=== PATIENT | male | born 1935 | race Caucasian/White ===

== ENCOUNTER 2022-11-27 16:27 | Inpatient (IN) | payer MEDICARE, OTHER ==
[2022-11-27 17:00] LABS: #Basophils 0.1 10x3/uL (0.0-0.2); #Eosinphils 0.9 10x3/uL (0.0-0.5); #Monocytes 0.9 10x3/uL (0.0-1.1); #Neutrophils 5.6 10x3/uL (1.5-8.4); %Eosinophils 8.5 % (0.0-6.0); %Monocytes 8.5 % (0.0-10.0); %Neutrophils 51.4 % (40.0-75.0); Hematocrit 38.4 % (38.8-50.0); Hemoglobin 13.1 g/dL (13.5-17.5); Mean Corpuscular HGB CONC 34.1 g/dL (32.0-36.0); Mean Corpuscular Hemoglobin 31.6 pg (27.0-33.0); Mean Corpuscular Volume 92.5 fl (81.2-95.1); Mean Platelet Volume 11.5 fl (7.4-10.4); Platelet Count 238 10x3/uL (150-450); Red Blood Cell (RBC) Count 4.15 10x6/uL (4.32-5.72)
[2022-11-27 17:13] LABS: ALT (SGPT) 38 U/L (8-55); AST (SGOT) 37 U/L (5-34); Alkaline Phosphatase 84 U/L (40-110); Anion Gap 14 mmol/L (10-20); BUN (Urea Nitrogen) 24 mg/dL (8.4-25.7); Bilirubin, Total 0.4 mg/dL (0.2-1.2); Calc. Creatinine Clearance 0 mL/min (70-130); Calcium 10.1 mg/dL (7.8-10.44); Carbon Dioxide 21 mmol/L (23-31); Chloride 103 mmol/L (98-107); Estimated GFR 48; Globulin 3.5 g/dL (2.4-3.5); Potassium 4.3 mmol/L (3.5-5.1); Protein, Total 7.5 g/dL (5.8-8.1); Sodium 134 mmol/L (136-145)
[2022-11-27 17:19] LABS: Troponin I Less than 0.010 ng/mL (< 0.028)
[2022-11-27 17:22] LABS: Glucose 437 mg/dL (83-110)
[2022-11-27] MEDS ORDERED: Insulin Regular 300 UNITS/3 ML VIAL ONE (18:48)
[2022-11-27] MEDS ORDERED: Glucagon 1 MG/ML KIT IM PRN (19:25)
[2022-11-27] MEDS ORDERED: Acetaminophen 325 MG TAB PO PRN (19:25)
[2022-11-27] MEDS ORDERED: Dextrose 50% Abboject 50 ML SYRINGE SLOW IVP PRN (19:25)
[2022-11-27] MEDS ORDERED: Ondansetron PF 4 MG/2 ML Vial IVP PRN (19:25)
[2022-11-27] MEDS ORDERED: HYDROcodone/Acetaminophen 5/325 mg Tablet PO PRN (19:25)
[2022-11-27] MEDS ORDERED: Dextrose 5% in Water 1,000 ML IV PRN (19:25)
[2022-11-27] MEDS ORDERED: Nitroglycerin 0.4 MG TAB (25 Tab Bottle) SL PRN (19:28)
[2022-11-27] MEDS ORDERED: Lactated Ringer's 500 ML IV SCH ×2 (19:30→20:45)
[2022-11-27] MEDS ORDERED: Famotidine/PF 20 mg/2ml Vial SLOW IVP SCH (19:30)
[2022-11-27 20:14] LABS: Troponin I Less than 0.010 ng/mL (< 0.028)
[2022-11-27] MEDS: Tamsulosin HCl 0.4 MG CAP PO SCH (20:41)
[2022-11-27] MEDS: Rosuvastatin 20 MG TAB PO SCH (20:42)
[2022-11-27 20:50] VITALS: BMI 21.1
[2022-11-27] MEDS: HumaLOG 300 UNITS/3 ML VIAL SC PRN (23:41)
[2022-11-28 02:32] LABS: Bilirubin Neg (Negative); Blood, Urine Negative (Negative); Clarity Clear (Clear); Glucose, Urine (Dipstick) >=1000 mg/dL (Negative); Ketone, Urine Negative (Negative); Leukocyte Negative (Negative); Nitrite Negative (Negative); Protein, Urine (Dipstick) 15 mg/dl (Neg-Trace); Urobilinogen Normal mg/dL (Less than 2)
[2022-11-28 02:38] LABS: Bacteria/HPF None Seen HPF (None Seen); RBC/HPF 0-3 HPF (0-3); Squamous Epithelial 0-3 HPF (0-3); WBC/HPF None Seen HPF (0-3)
[2022-11-28 05:13] LABS: #Basophils 0.1 10x3/uL (0.0-0.2); #Eosinphils 1.1 10x3/uL (0.0-0.5); #Monocytes 1.2 10x3/uL (0.0-1.1); #Neutrophils 6.5 10x3/uL (1.5-8.4); %Basophils 0.9 % (0.0-2.0); %Eosinophils 8.6 % (0.0-6.0); %Lymphocytes 30.2 % (18.0-47.0); %Monocytes 9.1 % (0.0-10.0); %Neutrophils 50.7 % (40.0-75.0); Hematocrit 35.7 % (38.8-50.0); Hemoglobin 12.4 g/dL (13.5-17.5); Mean Corpuscular HGB CONC 34.7 g/dL (32.0-36.0); Mean Corpuscular Hemoglobin 31.8 pg (27.0-33.0); Mean Corpuscular Volume 91.5 fl (81.2-95.1); Mean Platelet Volume 11.5 fl (7.4-10.4); Platelet Count 247 10x3/uL (150-450); RBC Distribution Width 13.2 % (11.5-14.5); White Blood Cell (WBC) Count 12.7 10x3/uL (3.5-10.5)
[2022-11-28] MEDS: HumaLOG 300 UNITS/3 ML VIAL SC PRN ×2 (06:11→11:51)
[2022-11-28 07:50] LABS: Anion Gap 14 mmol/L (10-20); BUN (Urea Nitrogen) 20 mg/dL (8.4-25.7); Calc. Creatinine Clearance 51 mL/min (70-130); Calcium 9.5 mg/dL (7.8-10.44); Carbon Dioxide 21 mmol/L (23-31); Cardiac Risk 2.8 (Less than 4.5); Chloride 107 mmol/L (98-107); Cholesterol 70 mg/dl (< 200 Desired); Estimated GFR 66; Glucose 213 mg/dL (83-110); HDL Cholesterol 25 mg/dL (>60 Neg Risk); LDL Cholesterol, Calculated 20 mg/dL; Potassium 4.1 mmol/L (3.5-5.1); Sodium 138 mmol/L (136-145); Triglycerides 124 mg/dL (Less than 150)
[2022-11-28] MEDS ORDERED: Aspirin 81 mg Enteric Coated Tablet PO SCH (09:00)
[2022-11-28] MEDS: Glimepiride 4 MG TAB PO SCH (09:09)
[2022-11-28] MEDS: Famotidine 20 MG TAB PO SCH ×2 (09:10→21:13)
[2022-11-28 10:52] LABS: Troponin I Less than 0.010 ng/mL (< 0.028)
[2022-11-28] MEDS ORDERED: Communication Order-Pharmacy FS SCH (11:45)
[2022-11-28 13:19] LABS: Hemoglobin A1c 9.2 % (4.0-6.0)
[2022-11-28] MEDS ORDERED: HumaLOG 300 UNITS/3 ML VIAL SC PRN (15:21)
[2022-11-28] MEDS ORDERED: Insulin NPH Human Isophane 100 UNITS/ML (10 ML VIAL) SC SCH (16:00)
[2022-11-28] MEDS: Rosuvastatin 20 MG TAB PO SCH (21:13)
[2022-11-28] MEDS: Tamsulosin HCl 0.4 MG CAP PO SCH (21:13)
[2022-11-29] MEDS ORDERED: Aspirin 81 mg Enteric Coated Tablet PO SCH (06:45)
[2022-11-29] MEDS ORDERED: Famotidine 20 MG TAB PO SCH (06:45)
[2022-11-29] MEDS: Glimepiride 4 MG TAB PO SCH (07:43)
[2022-11-29] MEDS ORDERED: Ondansetron PF 4 MG/2 ML Vial ONE ×2 (07:57→10:53)
[2022-11-29] MEDS ORDERED: Heparin 10,000 UNITS/ 10 ML VIAL ONE ×2 (07:57→09:58)
[2022-11-29] MEDS ORDERED: Nitroglycerin 50 MG/250 ML BOT 250 ML ONE (07:57)
[2022-11-29] MEDS ORDERED: Lidocaine 1% (PF) 30 ML VIAL ONE (07:57)
[2022-11-29] MEDS ORDERED: Adenosine 6 MG/2 ML VIAL ONE (07:58)
[2022-11-29] MEDS ORDERED: Atropine Sulfate 1 mg/1 ml Vial ONE ×2 (07:58→10:23)
[2022-11-29] MEDS ORDERED: Midazolam HCl 5 mg/5 ml Vial ONE (07:58)
[2022-11-29] MEDS ORDERED: fentaNYL 50 mcg/mL 1 mL Vial ONE (07:58)
[2022-11-29] MEDS ORDERED: Morphine 4 MG/ML VIAL ONE ×2 (09:40→10:52)
[2022-11-29] MEDS ORDERED: TICAGRELOR 90 MG TABLET ONE (09:41)
[2022-11-29] MEDS ORDERED: PHENYLEPHRINE-NS 100 MCG/ML 10 ML SYRINGE ONE (10:18)
[2022-11-29] MEDS ORDERED: NOREPINEPHRINE 8 MG/250 ML-D5W 0 ML ONE (10:22)
[2022-11-29] MEDS ORDERED: Metoprolol Tartrate 5 MG/5 ML VIAL ONE (10:24)
[2022-11-29] MEDS ORDERED: Protamine Sulfate 50 MG/5 ML VIAL ONE (11:06)
[2022-11-29] MEDS ORDERED: Zolpidem Tartrate 5 MG TAB PO PRN (11:51)
[2022-11-29] MEDS ORDERED: Acetaminophen/Codeine 30-300mg Tablet PO PRN (11:51)
[2022-11-29] MEDS ORDERED: Mag-Al 1200 mg/1200 mg/30 ML UDCUP PO PRN (11:51)
[2022-11-29] MEDS ORDERED: Milk Of Magnesia 30 ML UDCUP PO PRN (11:51)
[2022-11-29] MEDS ORDERED: Iopamidol 300 61% 100 ML VIAL FS ONE (12:05)
[2022-11-29] MEDS: Sodium Chloride 0.9% 1,000 ML IV SCH ×2 (13:34→22:45)
[2022-11-29] MEDS ORDERED: Insulin NPH Human Isophane 100 UNITS/ML (10 ML VIAL) SC SCH (18:30)
[2022-11-29] MEDS ORDERED: Tamsulosin HCl 0.4 MG CAP PO SCH (19:00)
[2022-11-29] MEDS: TICAGRELOR 90 MG TABLET PO SCH (20:42)
[2022-11-29] MEDS: Famotidine 20 MG TAB PO SCH (20:42)
[2022-11-29] MEDS: Rosuvastatin 20 MG TAB PO SCH (20:43)
[2022-11-29] MEDS: HumaLOG 300 UNITS/3 ML VIAL SC PRN (20:59)
[2022-11-29] MEDS ORDERED: Metoprolol Tartrate 25 MG TAB PO SCH (21:00)
[2022-11-29] MEDS ORDERED: Atorvastatin Calcium 40 MG TAB PO SCH (21:00)
[2022-11-30] MEDS: Sodium Chloride 0.9% 1,000 ML IV SCH (01:05)
[2022-11-30 04:12] LABS: #Basophils 0.1 10x3/uL (0.0-0.2); #Eosinphils 0.4 10x3/uL (0.0-0.5); #Monocytes 1.3 10x3/uL (0.0-1.1); #Neutrophils 11.1 10x3/uL (1.5-8.4); %Basophils 0.6 % (0.0-2.0); %Eosinophils 2.3 % (0.0-6.0); %Lymphocytes 18.6 % (18.0-47.0); %Monocytes 8.1 % (0.0-10.0); Hematocrit 33.4 % (38.8-50.0); Hemoglobin 11.3 g/dL (13.5-17.5); Mean Corpuscular HGB CONC 33.8 g/dL (32.0-36.0); Mean Corpuscular Volume 91.8 fl (81.2-95.1); Mean Platelet Volume 11.4 fl (7.4-10.4); Platelet Count 224 10x3/uL (150-450); RBC Distribution Width 13.3 % (11.5-14.5); Red Blood Cell (RBC) Count 3.64 10x6/uL (4.32-5.72); White Blood Cell (WBC) Count 15.9 10x3/uL (3.5-10.5)
[2022-11-30 04:15] LABS: ALT (SGPT) 30 U/L (8-55); AST (SGOT) 21 U/L (5-34); Albumin 3.5 g/dL (3.4-4.8); Alkaline Phosphatase 50 U/L (40-110); Anion Gap 14 mmol/L (10-20); BUN (Urea Nitrogen) 18 mg/dL (8.4-25.7); Bilirubin, Total 0.6 mg/dL (0.2-1.2); Calc. Creatinine Clearance 55 mL/min (70-130); Carbon Dioxide 21 mmol/L (23-31); Chloride 107 mmol/L (98-107); Estimated GFR 72; Glucose 138 mg/dL (83-110); Magnesium 2.2 mg/dL (1.6-2.6); Potassium 3.6 mmol/L (3.5-5.1); Protein, Total 6.5 g/dL (5.8-8.1); Sodium 138 mmol/L (136-145)
[2022-11-30] MEDS: Famotidine 20 MG TAB PO SCH (07:53)
[2022-11-30] MEDS: TICAGRELOR 90 MG TABLET PO SCH (07:53)
[2022-11-30] MEDS: Glimepiride 4 MG TAB PO SCH (07:54)
[2022-11-30 08:31] VITALS: BP 115/59; TEMP 97.9
[2022-11-30] MEDS ORDERED: Aspirin 81 mg Enteric Coated Tablet PO SCH (09:00)
[2022-11-30] MEDS ORDERED: Lisinopril 2.5 MG TAB PO SCH (09:00)
[2022-12-01] MEDS ORDERED: Clopidogrel Bisulfate 75 MG TAB PO SCH (09:00)
== END 2022-11-30 11:17 | disposition home or self-care (01) | DRG 247 ==
LOC: CSHERS 16:27 → CSHTELE 19:56 → OBSVTOIN 11-28 15:23 → CSHIMCU 11-29 10:30
PROVIDERS: ADMIT Student in an Organized Health Care Education/Training Program; ATTEND Internal Medicine
PROC: 4A023N7 Measurement of Cardiac Sampling and Pressure, Left Heart, Percutaneous Approach (ICD-10-PCS; principal; 2022-11-29)
PROC: 027135Z Dilation of Coronary Artery, Two Arteries with Two Drug-eluting Intraluminal Devices, Percutaneous Approach (ICD-10-PCS; 2022-11-29)
PROC: B2151ZZ Fluoroscopy of Left Heart using Low Osmolar Contrast (ICD-10-PCS; 2022-11-29)
DX: I25.110 Atherosclerotic heart disease of native coronary artery with unstable angina pectoris (principal); I24.9 Acute ischemic heart disease, unspecified; N17.9 Acute kidney failure, unspecified; E11.65 Type 2 diabetes mellitus with hyperglycemia; E11.22 Type 2 diabetes mellitus with diabetic chronic kidney disease; N18.30 Chronic kidney disease, stage 3 unspecified; N40.0 Benign prostatic hyperplasia without lower urinary tract symptoms; E78.5 Hyperlipidemia, unspecified; E11.40 Type 2 diabetes mellitus with diabetic neuropathy, unspecified; I12.9 Hypertensive chronic kidney disease with stage 1 through stage 4 chronic kidney disease, or unspecified chronic kidney disease; Z82.49 Family history of ischemic heart disease and other diseases of the circulatory system; Z79.899 Other long term (current) drug therapy; Z90.89 Acquired absence of other organs; Z87.891 Personal history of nicotine dependence; Z79.4 Long term (current) use of insulin
CPT/HCPCS: 36415; 36416; 71045; 80048; 80053; 80061; 81001; 83036; 83690; 83735; 84484; 85025; 85347; 92928; 92978; 92979; 93005; 93010; 93306; 93458; 94760; 94762; 96372; 96374; 99152; 99153; C1726; C1753; C1760; C1769; C1874; C1887; C9600; G0378; J0153; J0461; J1644; J1650; J1815; J2001; J2250; J2270; J2405; J2720; J3010; J7050; J7120; S0028